=== PATIENT | female | born 1970 | race Caucasian/White ===

== ENCOUNTER 2020-03-12 15:17 | Emergency (ER) | payer BC ==
[~2020-03-12] VITALS: Ht 154.9 cm; Wt 97.5 kg
[2020-03-12 15:38] VITALS: BP_SYST 162
--- NOTE | 2020-03-12 15:42 | NUR ---
sent to no beds in ED
--- NOTE | 2020-03-12 15:55 | NUR ---
no answer in [facility]
--- NOTE | 2020-03-12 16:00 | NUR ---
NO answer in [facility]
--- NOTE | 2020-03-12 16:10 | NUR ---
No answer in [facility]
== END 2020-03-12 16:10 | disposition left against medical advice (07) ==
LOC: SED 15:17
DX: R53.1 Weakness (principal); Z53.21 Procedure and treatment not carried out due to patient leaving prior to being seen by health care provider